=== PATIENT | female | born 1940 | race American Indian/Alaskan Native ===

== ENCOUNTER 2019-06-24 10:31 | Outpatient (CLI) | payer MEDICARE ==
--- NOTE | 2019-06-24 11:44 | Cat Scan Report ---
CT ABDOMEN AND PELVIS WITHOUT CONTRAST HISTORY: R31.29 OTHER MICROSCOPIC HEMATURIA COMPARISON: None. TECHNIQUE: Axial CT images were obtained through the abdomen and pelvis without IV contrast. Sagittal and coronal reformatted images. All CT scans at this location are performed using CT dose reduction for ALARA by means of automated exposure control. FINDINGS: CT ABDOMEN: Lung Bases: Clear. Liver: No significant abnormality. Biliary: No significant abnormality. Spleen: No significant abnormality. Unenlarged. Pancreas: No significant abnormality. Adrenals: No significant abnormality. Kidneys: No significant abnormality. No evidence for cystic disease, mass or nephrolithiasis. The ure ters are normal course and caliber. No hydronephrosis. Lymphatics: No lymphadenopathy. Vasculature: Mild aortic calcifications. No aneurysm. Bowel/Peritoneum: Moderate diverticulosis of the colon is identified. No evidence for mass, obstructi on or focal inflammation. Normal appendix. CT PELVIS: : The uterus is mildly enlarged, lobular and contains calcified and noncalcified uterine fibroids. No adnexal abnormality is detected. The bladder is partially empty but unremarkable. Osseous Structures: Mild osteopenia. Mild multilevel thoracolumbar spondylosis. No acute osseous inju ry. Additional Findings: None IMPRESSION: The kidneys and renal collecting systems are unremarkable. No clear explanation for microscopic hemat uria noncontrast CT. Diverticulosis of the colon. Uterine fibroid disease. Signer Name: Cong Lew Jr, MD Signed: 06/24/2019 11:40 AM Workstation Name: [id number]
== END 2019-06-24 10:32 | disposition home or self-care (01) ==
LOC: CT 10:31
PROVIDERS: ATTEND Urology
DX: K57.30 Diverticulosis of large intestine without perforation or abscess without bleeding (principal); R31.29 Other microscopic hematuria; D25.9 Leiomyoma of uterus, unspecified; I70.0 Atherosclerosis of aorta; Z88.8 Allergy status to other drugs, medicaments and biological substances
CPT/HCPCS: 74176